=== PATIENT | male | born 2000 | race Caucasian/White ===

== ENCOUNTER 2023-06-09 00:20 | Emergency (ER) | payer OTHER ==
[~2023-06-09] VITALS: Ht 177.8 cm; Wt 70.3 kg
[2023-06-09] MEDS ORDERED: LIDOCAINE 2% 20 ML MDV ONE (00:28)
[2023-06-09 01:55] VITALS: BP 125/72; TEMP 98.2; O2SAT 99
== END 2023-06-09 01:55 | disposition home or self-care (01) ==
LOC: ER 00:25
DX: S63.277A Dislocation of unspecified interphalangeal joint of left little finger, initial encounter (principal); X58.XXXA Exposure to other specified factors, initial encounter; Y93.89 Activity, other specified; Y92.89 Other specified places as the place of occurrence of the external cause; Y99.8 Other external cause status
CPT/HCPCS: 99284; 26770; 73130; J3490